=== PATIENT | male | born 1940 | race Asian ===

== ENCOUNTER → 2021-04-06 | Outpatient (CLI) | payer MEDICARE ==
[~2021-04-06] MED LIST: REGADENOSON 0.4 MG/5 ML PF SYRINGE IVP ONE; SESTAMIBI TC99M/UD ISOTOPE 1 EA INJ INJ ONE
[2021-04-06 09:58] VITALS: BP 155/77
[2021-04-06 10:04] VITALS: BP 143/79
== END | disposition home or self-care (01) ==
LOC: CARDMN 08:08
PROVIDERS: ATTEND Internal Medicine Cardiovascular Disease
DX: I08.8 Other rheumatic multiple valve diseases (principal); I50.9 Heart failure, unspecified; I25.9 Chronic ischemic heart disease, unspecified; I50.1 Left ventricular failure, unspecified
CPT/HCPCS: 78452; 93017; 93306; A9500